=== PATIENT | female | born 1985 | race Two or more races ===

== ENCOUNTER 2017-08-31 19:41 | Emergency (ER) | payer SELFPAY ==
[~2017-08-31] VITALS: Ht 170.2 cm; Wt 91.0 kg
[2017-08-31 20:10] VITALS: BP 115/62
== END 2017-09-01 00:59 | disposition left against medical advice (07) ==
LOC: ER 19:41
DX: R06.02 Shortness of breath (principal); Z53.21 Procedure and treatment not carried out due to patient leaving prior to being seen by health care provider